=== PATIENT | female | born 1950 | race Caucasian/White ===

== ENCOUNTER 2017-09-24 17:54 | Emergency (ER) | payer OTHER ==
[~2017-09-24] VITALS: Ht 170.2 cm; Wt 90.9 kg
[2017-09-24] MEDS ORDERED: ONDANSETRON HCL 4 MG/2 ML VIAL IVP ONE (19:30)
[2017-09-24] MEDS ORDERED: MORPHINE SULFATE 4 MG/ML SYRINGE IVP ONE (19:30)
[2017-09-24] MEDS ORDERED: SITA100 PO (19:33)
[2017-09-24] MEDS ORDERED: PRAV40TA4 PO (19:33)
[2017-09-24] MEDS ORDERED: METF500T6 PO (19:33)
[2017-09-24] MEDS ORDERED: AMLO-512 PO (19:33)
[2017-09-24] MEDS ORDERED: ACET500C4 PO (19:33)
[2017-09-24] MEDS ORDERED: HYDR25TA PO (19:33)
[2017-09-24] MEDS ORDERED: ASPI81 PO (19:33)
[2017-09-24] MEDS ORDERED: GLIP10 PO (19:33)
[2017-09-24] MEDS ORDERED: LISI-662 PO (19:33)
[2017-09-24] MEDS ORDERED: KETOROLAC TROMETHAMINE 30 MG/ML VIAL IVP ONE (20:30)
[2017-09-24] MEDS ORDERED: DIAZEPAM 5 MG/ML 2 ML SYRINGE IVP ONE (20:30)
[2017-09-24 22:08] VITALS: BP 131/74
== END 2017-09-24 22:11 | disposition home or self-care (01) ==
LOC: EMS 17:54
DX: S74.01XA Injury of sciatic nerve at hip and thigh level, right leg, initial encounter (principal); E11.9 Type 2 diabetes mellitus without complications; I10 Essential (primary) hypertension; X58.XXXA Exposure to other specified factors, initial encounter; Y93.89 Activity, other specified; Y92.89 Other specified places as the place of occurrence of the external cause; Y99.8 Other external cause status
CPT/HCPCS: 73502; 96374; 96375; 99284; J1885 ×2; J2270; J2405